=== PATIENT | female | born 1950 | race Caucasian/White ===

== ENCOUNTER 2016-09-10 09:12 | Outpatient (CLI) | payer MEDICARE ==
[2016-09-10 18:47] LABS: Hep C IgG Ab Non-Reactive (NonReactive); Hep C Index 0.13 S/CO (0-0.79)
== END 2016-09-10 09:13 ==
LOC: LABLEX 09:12
PROVIDERS: ATTEND Family Medicine
DX: Z72.89 Other problems related to lifestyle (principal)
CPT/HCPCS: 86803

== ENCOUNTER 2020-01-22 11:15 | Emergency (ER) | payer MEDICARE ==
--- NOTE | 2020-01-22 14:46 | RAD ---
LEFT FEMUR 01/22/20 AP and lateral views show no sign of fracture. The hip appears intact. No joint effusion is seen at t he knee. IMPRESSION: No significant finding. POS: HOME
== END 2020-01-22 11:55 | disposition home or self-care (01) ==
LOC: BURERS 11:15
DX: S76.312A Strain of muscle, fascia and tendon of the posterior muscle group at thigh level, left thigh, initial encounter (principal); K21.9 Gastro-esophageal reflux disease without esophagitis; M19.90 Unspecified osteoarthritis, unspecified site; F32.9 Major depressive disorder, single episode, unspecified; Z79.899 Other long term (current) drug therapy; W01.0XXA Fall on same level from slipping, tripping and stumbling without subsequent striking against object, initial encounter